=== PATIENT | female | born 1945 | race Native Hawaiian/Other Pacific Islander ===

== ENCOUNTER 2017-06-25 11:30 | Day surgery (SDC) | payer MEDICARE, OTHER ==
[2017-06-25] MEDS ORDERED: IOPIDINE OS ONE ×2 (12:03→13:34)
[2017-06-25] MEDS ORDERED: MYDRIACYL OS ONE (12:03)
[2017-06-25] MEDS ORDERED: NEOFRIN OS ONE (12:03)
[2017-06-25 13:29] VITALS: BP 157/83
[2017-06-25] MEDS ORDERED: IOPIDINE ONE (15:34)
== END 2017-06-25 13:37 | disposition home or self-care (01) ==
LOC: OR 11:30
PROVIDERS: ATTEND Specialist
DX: H26.492 Other secondary cataract, left eye (principal); G43.909 Migraine, unspecified, not intractable, without status migrainosus; M19.90 Unspecified osteoarthritis, unspecified site; M06.9 Rheumatoid arthritis, unspecified; Z98.890 Other specified postprocedural states

== ENCOUNTER 2017-07-02 10:00 | Day surgery (SDC) | payer MEDICARE, OTHER ==
[~2017-07-02 10:00] MED LIST: IOPIDINE OD ONE; IOPIDINE ONE; LACTATED RINGERS 1,000 ML IV SCH; MYDRIACYL OD ONE; MYDRIACYL ONE; NEOFRIN OD ONE; NEOFRIN ONE
[2017-07-02 10:26] VITALS: BP 160/74
[2017-07-02] MEDS ORDERED: NEOFRIN OD ONE (11:08)
[2017-07-02] MEDS ORDERED: IOPIDINE OD ONE ×2 (11:08→12:24)
[2017-07-02] MEDS ORDERED: MYDRIACYL OD ONE (11:08)
== END 2017-07-02 12:26 | disposition home or self-care (01) ==
LOC: OR 10:00
PROVIDERS: ATTEND Specialist
DX: H26.491 Other secondary cataract, right eye (principal); G43.909 Migraine, unspecified, not intractable, without status migrainosus; M19.90 Unspecified osteoarthritis, unspecified site; Z98.890 Other specified postprocedural states

== ENCOUNTER 2018-09-06 10:52 | Outpatient (CLI) | payer MEDICARE, OTHER ==
--- NOTE | 2018-09-06 11:52 | Mammography Report ---
Screening mammogram: Routine views demonstrates a heterogeneously dense and somewhat lobulated appearing fibroglandular pattern bilaterally. There is an asymmetry with some angular margination in the inferior left breast seen only in the MLO projection. In the lateral right breast anteriorly there is a small grouping of irregular shaped densities. CAD used. Impression: Bilateral asymmetries. Recommendation: This patient prior exams are being requested for comparison before final recommendation. BI-RADS CATEGORY: 0 = Needs additional imaging evaluation ACR BI-RADS MAMMOGRAPHIC CODES: 0 = Needs additional imaging evaluation; 1 = Negative; 2 = Benign; 3 = Probably benign; 4 = Suspicious; 5 = Malignant; 6 = Known biopsy-proven malignancy COMMENT: 1. Dense breast tissue, i.e., adenosis, fibrocystic changes, etc., may obscure an underlying neoplasm. 2. Approximately 10% of cancers are not detected with mammography. 3. A negative mammography report should not delay biopsy if a clinically suspicious mass is present.
== END 2018-09-06 10:53 | disposition home or self-care (01) ==
LOC: SPVWC 10:52
PROVIDERS: ATTEND Internal Medicine
DX: Z12.31 Encounter for screening mammogram for malignant neoplasm of breast (principal)
CPT/HCPCS: 77067

== ENCOUNTER 2018-09-22 13:16 | Outpatient (CLI) | payer MEDICARE, OTHER ==
--- NOTE | 2018-09-22 16:11 | Mammography Report ---
DEXA BONE DENSITY SCAN INDICATION: OSTEOPOROSIS. History of hyperparathyroidism. COMPARISON: None available. LUMBAR SPINE (L1-L4): Bone mineral density (BMD) is 0.608 g/cm2. T-score is -4.0 (standard deviations of Young Adult mean). Z-score is -1.7 (standard deviations of Age Matched mean). LEFT HIP: Bone mineral density (BMD) is 0.430 g/cm2. T-score is -4.0 (standard deviations of Young Adult mean). Z-score is -2.3 (standard deviations of Age Matched mean). IMPRESSION: 1. WHO Classification: Osteoporosis. Fracture Risk: High based on both spine and left hip measurement s. Signer Name: Saulo Escoto MD Signed: 09/22/2018 4:07 PM Workstation Name: [id number]
== END 2018-09-22 13:17 | disposition home or self-care (01) ==
LOC: SPVWC 13:16
PROVIDERS: ATTEND Internal Medicine
DX: M81.0 Age-related osteoporosis without current pathological fracture (principal); Z78.0 Asymptomatic menopausal state
CPT/HCPCS: 77080